=== PATIENT | male | born 1945 | race Two or more races ===

== ENCOUNTER → 2017-09-28 | Outpatient (CLI) | payer MEDICAID ==
[~2017-09-28] VITALS: Ht 162.6 cm; Wt 78.5 kg
[2017-09-28 12:02] LABS: Basophils # (auto) 0 uL; Basophils % (auto) 0.3 % (0.0-2.0); Eosinophils # (auto) 0.1 uL; Eosinophils % (auto) 2.2 % (0.0-7.0); Hematocrit 40.4 % (41.0-53.0); Hemoglobin 13.9 g/dL (13.5-17.5); Lymphocytes # (auto) 1.6 uL; Mean Corpuscular Hemoglobin 31.4 pg (28.0-32.0); Mean Corpuscular Hgb Conc. 34.3 g/dL (32.0-36.0); Mean Corpuscular Volume 91.6 fL (80.0-100.0); Monocytes # (auto) 0.4 uL; Monocytes % (auto) 6.2 % (0.0-12.0); Neutrophils # (auto) 4.4 uL; Neutrophils % (auto) 66.3 % (37.0-80.0); Nucleated Red Blood Cells % 0.1 %; Platelet Count (auto) 190 10^3/uL (140-450); Red Blood Cells 4.42 10^6/uL (4.5-5.90); Red Cell Distribution Width 12.9 % (11.8-14.3); White Blood Cell 6.6 10^3/uL (4.4-10.8)
[2017-09-28 12:32] LABS: Albumin 3.5 g/dL (3.4-5.0); BUN/Creatinine Ratio 18.3; Calcium 8.3 mg/dL (8.5-10.1); Potassium 4.3 mmol/L (3.5-5.1)
[2017-09-28 12:35] LABS: Bilirubin, Total 0.6 mg/dL (0.2-1.0); Total Protein 7.1 g/dL (6.4-8.2)
== END | disposition home or self-care (01) ==
LOC: Rad HDHVI 08:04
PROVIDERS: ATTEND Internal Medicine
DX: I08.1 Rheumatic disorders of both mitral and tricuspid valves (principal); I70.0 Atherosclerosis of aorta; D64.9 Anemia, unspecified; I10 Essential (primary) hypertension
CPT/HCPCS: 36415; 78452; 80053; 85025; 93017; 93306; 96374; A9500

== ENCOUNTER → 2017-10-23 | Outpatient (CLI) | payer MEDICAID | END | disposition home or self-care (01) | LOC: Rad HDHVI 16:02 | PROVIDERS: ATTEND Internal Medicine | DX: I07.1 Rheumatic tricuspid insufficiency (principal); I34.0 Nonrheumatic mitral (valve) insufficiency; I10 Essential (primary) hypertension | CPT/HCPCS: 93306 ==

== ENCOUNTER → 2018-03-15 | Outpatient (CLI) | payer MEDICAID | END | disposition home or self-care (01) | LOC: Rad HDHVI 08:38 | PROVIDERS: ATTEND Internal Medicine | DX: I08.1 Rheumatic disorders of both mitral and tricuspid valves (principal); I10 Essential (primary) hypertension | CPT/HCPCS: 93306 ==

== ENCOUNTER 2022-05-10 07:13 | Day surgery (SDC) | payer MEDICAID ==
[2022-05-10] VITALS (11 sets, daily range): BP systolic 112–135; BP diastolic 51–74
[~2022-05-10] VITALS: Ht 170.2 cm; Wt 77.0 kg
[~2022-05-10 07:13] MED LIST: MULT-1058 PO; VALS1TAB57 PO
[2022-05-10] MEDS ORDERED: ANGIOMAX 250 MG VIAL IV ONE (10:53)
[2022-05-10] MEDS ORDERED: VERAPAMIL 2.5MG/ML INJ 2ML VIAL IV ONE (10:53)
[2022-05-10] MEDS ORDERED: fentaNYL CITRATE 100 MCG/2 ML VL ONE (10:53)
[2022-05-10] MEDS ORDERED: HEPARIN SODIUM (PORCINE) 5000 UNITS/ML 1ML VIAL ONE (10:53)
[2022-05-10] MEDS ORDERED: MIDAZOLAM HCL 2MG/2ML 2ml VIAL (1mg/ml) ONE (10:54)
[2022-05-10] MEDS ORDERED: IODIXANOL 320MG/ML 100ML BTL IV ONE (10:54)
[2022-05-10] MEDS ORDERED: SODIUM CHL 0.9% 0 ML ONE (10:54)
== END 2022-05-10 14:22 | disposition home or self-care (01) ==
LOC: CATH 07:13
PROVIDERS: ATTEND Internal Medicine Cardiovascular Disease
DX: R94.39 Abnormal result of other cardiovascular function study (principal); E78.5 Hyperlipidemia, unspecified; N40.0 Benign prostatic hyperplasia without lower urinary tract symptoms; I25.10 Atherosclerotic heart disease of native coronary artery without angina pectoris; I10 Essential (primary) hypertension; Z79.899 Other long term (current) drug therapy; Z87.891 Personal history of nicotine dependence; Z20.822 Contact with and (suspected) exposure to COVID-19
CPT/HCPCS: 93458; 93571; C1725; C1769; C1894; J1644; J2250; J3010; Q9967; U0003; 99152